=== PATIENT | female | born 1960 ===

== ENCOUNTER 2019-06-13 18:34 | Emergency (ER) | payer OTHER ==
[2019-06-13 19:32] VITALS: BP 131/60
--- NOTE | 2019-06-13 20:21 | UC ---
Respiratory Complaint HPI - HPI Summary HPI Summary: 58 yo with onset of fever, chills and myalgias on 06/04, assumed flu and rested at home. Increased cough over the course of the week. Began to improve early this week, but for the past 4 days she has had increased cough, sputum production with onset of headache and low grade fever today. Not short of breath and no having chest pain. - History of Current Complaint Chief Complaint: UCGeneralIllness Stated Complaint: COUGH Time Seen by Provider: 06/13/19 20:11 Hx Obtained From: Patient Onset/Duration: Gradual Onset, Lasting Days Timing: Constant Severity Initially: Moderate Severity Currently: Moderate Pain Intensity: 0 Character: Cough: Productive Aggravating Factors: Recumbent Position - cough worse at night. Alleviating Factors: OTC Meds Associated Signs And Symptoms: Positive: Fever, Chills. Negative: Dyspnea - Risk Factors Pulmonary Embolism Risk Factors: Negative Cardiac Risk Factors: Family History Pseudomonas Risk Factors: Negative Tuberculosis Risk Factors: Negative - Allergies/Home Medications Allergies/Adverse Reactions: Allergies Allergy/AdvReac Type Severity Reaction Status Date / Time cefdinir Allergy See Comment Verified 06/13/19 19:33 meperidine [From Demerol] Allergy See Comment Verified 06/13/19 19:33 Home Medications: Home Medications DOXYcycline CAP(*) [DOXYcycline 100MG CAP(*)] 100 mg PO BID #14 cap 06/13/19 [Rx ] Pravastatin (NF) [Pravachol (NF)] 10 mg PO 1700 06/13/19 [History Confirmed 09/26] lamoTRIgine [Lamictal (Green)] 225 mg PO DAILY 06/13/19 [History Confirmed 06/12] PMH/Surg Hx/FS Hx/Imm Hx Previously Healthy: Yes Endocrine History: Dyslipidemia Psychological History: Bipolar Disorder - Surgical History Surgical History: None - Family History Known Family History: Positive: Cardiac Disease - extensive on paternal side - Social History Occupation: Unemployed Lives: With Family Alcohol Use: None Substance Use Type: None Smoking Status (MU): Never Smoked Tobacco Review of Systems All Other Systems Reviewed And Are Negative: Yes Constitutional: Positive: Fever, Fatigue Skin: Positive: Negative Eyes: Positive: Negative ENT: Positive: Negative Respiratory: Positive: Cough. Negative: Shortness Of Breath Cardiovascular: Negative: Palpitations, Chest Pain Gastrointestinal: Positive: Nausea Genitourinary: Positive: Negative Motor: Positive: Negative Neurovascular: Positive: Negative Musculoskeletal: Positive: Negative Neurological/Mental Status: Positive: Headache Psychological: Positive: Negative Is Patient Immunocompromised?: No Physical Exam Triage Information Reviewed: Yes Appearance: No Pain Distress, Ill-Appearing - looks mildly unwell, but in no respiratory distress. Vital Signs: Initial Vital Signs Temp 98.4 F 06/13/19 19:26 Pulse 89 06/13/19 19:26 Resp 16 06/13/19 19:26 BP 131/60 06/13/19 19:26 Pulse Ox 99 06/13/19 19:26 Eyes: Positive: Conjunctiva Clear ENT: Positive: Pharyngeal erythema, TMs normal Respiratory: Positive: No respiratory distress, No accessory muscle use, Rhonchi - upper lung verma with coarse breath sounds. Negative: Decreased breath sounds Cardiovascular: Positive: RRR, No Murmur Musculoskeletal Exam: Normal Neurological: Positive: Alert, Muscle Tone Normal Psychological Exam: Normal Skin Exam: Normal Respiratory Course/Dx - Course Course Of Treatment: Discussed likely flu followed by symptoms suggestive of lower respiratory illness, although her air entry and O2 sats are good. Will begin treatment with doxy for likely lower respiratory illness complicating influenza. - Differential Dx/Diagnosis Differential Diagnosis/HQI/PQRI: Bronchitis, Influenza, Laryngitis, Lower Resp Infection, Sinusitis Provider Diagnosis: Lower respiratory tract infection Discharge ED - Sign-Out/Discharge Documenting (check all that apply): Patient Departure All imaging exams completed and their final reports reviewed: No Studies - Discharge Plan Condition: Stable Disposition: HOME Prescriptions: DOXYcycline CAP(*) [DOXYcycline 100MG CAP(*)] 100 mg PO BID #14 cap Patient Education Materials: Acute Bronchitis (ED) Referrals: Josefina Casillas MD [Primary Care Provider] - Additional Instructions: begin treatment with doxycyline to cover possible bronchitis, early pneumonia. Continue increased rest and fluids. please take the full course of antibiotics. Return if you have increased shortness of breath or chest pain for re- evaluation. You might try use of long acting dextromethorphan for suppression of cough. - Billing Disposition and Condition Condition: STABLE Disposition: Home
== END 2019-06-13 20:36 | disposition home or self-care (01) ==
LOC: UCCORT 18:34
DX: J22 Unspecified acute lower respiratory infection (principal); F31.9 Bipolar disorder, unspecified; R11.0 Nausea; E78.5 Hyperlipidemia, unspecified; Z88.1 Allergy status to other antibiotic agents; Z88.5 Allergy status to narcotic agent; Z79.899 Other long term (current) drug therapy
CPT/HCPCS: 99212; G0463